=== PATIENT | male | born 1970 | race Hispanic/Latino ===

== ENCOUNTER 2018-12-18 23:14 | Emergency (ER) | payer MEDICAID ==
[2018-12-18 23:21] VITALS: TEMP 98.1; O2SAT 99
--- NOTE | 2018-12-19 00:39 | ED PDOC ---
HPI: Psych/Substance Abuse Time Seen by Provider: 12/18/18 23:23 Chief Complaint (Nursing): Alcohol Ingestion Chief Complaint (Provider): Alcohol Ingestion History Per: Patient, EMS History/Exam Limitations: no limitations Current Symptoms Are (Timing): Still Present Suicide/Self Injury Attempted (Context): None Modifying Factor(s): Alcohol Additional Complaint(s): 48 year old male presents to the ED via EMS for evaluation after he was found sleeping and intoxicated on the street. Patient exhibits some slurred speech. Otherwise, he is currently in no distress and not offering any medical complaints. PMD: none Past Medical History Reviewed: Historical Data, Nursing Documentation, Vital Signs Vital Signs: Last Vital Signs Temp 98.1 F 12/18/18 23:16 Pulse 80 12/18/18 23:16 Resp 18 12/18/18 23:16 BP 131/86 12/18/18 23:16 Pulse Ox 99 12/18/18 23:16 - Medical History PMH: HTN - Surgical History Surgical History: No Surg Hx - Family History Family History: States: Unknown Family Hx - Home Medications Home Medications: Ambulatory Orders Medication Instructions Recorded No Known Home Med 04/11/15 - Allergies Allergies/Adverse Reactions: Allergies Allergy/AdvReac Type Severity Reaction Status Date / Time No Known Allergies Allergy Verified 04/11/15 15:25 Review of Systems ROS Statement: Except As Marked, All Systems Reviewed And Found Negative Neurological: Positive for: Change in Speech (slurred) Physical Exam - Reviewed Nursing Documentation Reviewed: Yes Vital Signs Reviewed: Yes - Physical Exam Appears: Positive for: No Acute Distress Head Exam: Positive for: ATRAUMATIC, NORMAL INSPECTION, NORMOCEPHALIC Skin: Positive for: Normal Color, Warm, Dry Eye Exam: Positive for: Normal appearance, EOMI, PERRL Neck: Positive for: Normal, Painless ROM Cardiovascular/Chest: Positive for: Regular Rate, Rhythm. Negative for: Murmur Respiratory: Positive for: Normal Breath Sounds. Negative for: Respiratory Distress Neurological/Psych: Positive for: Awake, Alert, Normal Tone, Oriented (x 3), Other (slurred speech). Negative for: Motor/Sensory Deficits - ECG O2 Sat by Pulse Oximetry: 99 (RA) Pulse Ox Interpretation: Normal Medical Decision Making Medical Decision Makin:24 Impression: 48 year old male with alcohol intoxication Initial Plan: --Alcohol serum --Accucheck Patient has an alcohol quantitative level of 401 H. Will continue to monitor patient in the ED for sobriety. 02:35 Patient is in no acute distress with normal vitals. Continues to rest comfortably in ED. 05:26 On re-evaluation, patient is clinically sober. He is speaking clearly and ambulating with steady gait. Patient is stable for discharge at this time. Scribe Attestation: Documented by Carlota Gunn, acting as a scribe Ash Stuart MD Provider Scribe Attestation: All medical record entries made by the Scribe were at my direction and personally dictated by me. I have reviewed the chart and agree that the record accurately reflects my personal performance of the history, physical exam, medical decision making, and the department course for this patient. I have also personally directed, reviewed, and agree with the discharge instructions and disposition Disposition - Clinical Impression Clinical Impression: Alcohol abuse - Patient ED Disposition Is Patient to be Admitted: No - Disposition Disposition: Routine/Home Disposition Time: 05:26 Condition: STABLE Instructions: Alcohol Abuse and Alcoholism (DC) Forms: Your Policy Manager (Sami)
[2018-12-19 05:37] VITALS: BP 127/87; PULSE 77; RESP 17
== END 2018-12-19 05:25 | disposition home or self-care (01) ==
LOC: H.ER 23:14
DX: F10.129 Alcohol abuse with intoxication, unspecified (principal); I10 Essential (primary) hypertension; Y90.8 Blood alcohol level of 240 mg/100 ml or more